=== PATIENT | male | born 1995 | race African-American/Black ===

== ENCOUNTER 2024-07-28 18:20 | Emergency (ER) | payer SELFPAY ==
[~2024-07-28] VITALS: Ht 175.3 cm; Wt 69.0 kg
[2024-07-28 18:22] VITALS: BP 129/93; PULSE 104; RESP 16; TEMP 98.6; O2SAT 93
[2024-07-28] MEDS: TETANUS, DIPHTHERIA, PERTUSSIS VAC/PF 0.5ML (>10YR OLD) IM ONE (20:06)
== END 2024-07-28 21:18 | disposition left against medical advice (07) ==
LOC: ER 18:20
DX: S01.112A Laceration without foreign body of left eyelid and periocular area, initial encounter (principal); S05.11XA Contusion of eyeball and orbital tissues, right eye, initial encounter; Y04.0XXA Assault by unarmed brawl or fight, initial encounter; Y93.89 Activity, other specified; Y92.89 Other specified places as the place of occurrence of the external cause; Y99.8 Other external cause status
CPT/HCPCS: 99283